=== PATIENT | female | born 2005 | race Caucasian/White ===

== ENCOUNTER 2023-03-08 14:22 | Emergency (ER) | payer OTHER, SELFPAY ==
[2023-03-08 14:30] VITALS: BP 109/63; PULSE 88; RESP 18; TEMP 36.6; O2SAT 100; BMI 20.1
--- NOTE | 2023-03-08 17:46 | ED.GENADULT ---
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 She says she was pinching at her right eye quite a bit trying to find her contact lens and now the right eye somewhat red. Vision is baseline. She wears soft lenses, normally she says she is good about changing them regularly. Related Data Home Medications Medication Instructions Recorded Confirmed Adderall 03/08/23 Allergies Allergy/AdvReac Type Severity Reaction Status Date / Time No Known Drug Allergies Allergy Verified 03/08/23 14:34 Exam Narrative: Exam Narrative: Vital signs reviewed In general, alert, well-appearing teenager. Eyes: She has some conjunctival injection in the lower outer quadrant of her right eye. With just the light I did not see evidence of a lens in either eye. I did add some proparacaine drops as well as fluorescein, I do not see evidence of retained contact lenses. She does have a little bit of uptake in that injected area in her right eye. Skin: Warm dry well perfused, no erythema or warmth. Neurologic: She is alert, conversant, gait stable. Const: Vital Signs, click to edit/add: Vital Signs - 24 hr 03/08/23 14:30 Temperature 98 F Pulse Rate [Pulse Oximeter] 88 Respiratory Rate 18 Blood Pressure [Ri ght Upper Arm] 109/63 Pulse Oximetry 100 Documenting provider has reviewed patient's vital signs: yes Course Course Hospital Course: Discussed that at this time I do not see any evidence of contact lenses. It is possible she removed them and does not remember, or they may have fallen out. In any case, recommended some tobramycin drops to cover for mild abrasion on the right eye. Would recommend leaving contacts out until that inflammation has settled down. Follow-up with blood bank laboratory professional for ongoing concerns. She did tell me that she was not sure she was going to pick up driver the tobramycin drops because [place] sure if her insurance will cover them. Reviewed with her that I would recommend that she start those, but if she does not, make sure to return if her eyes getting worse. Vital Signs Vital signs: Initial Vital Signs Temperature 98 F 03/08/23 14:30 Temperature Source Temporal Artery Scan 03/08/23 14:30 Pulse Rate 88 03/08/23 14:30 Respiratory Rate 18 03/08/23 14:30 Blood Pressure 109/63 03/08/23 14:30 Blood Pressure Mean 78 03/08/23 14:30 Blood Pressure Position Sitting 03/08/23 14:30 Pulse Oximetry 100 03/08/23 14:30 Vital Signs Temperature 98 F 03/08/23 14:30 Pulse Rate 88 03/08/23 14:30 Respiratory Rate 18 03/08/23 14:30 Blood Pressure 109/63 03/08/23 14:30 Pulse Oximetry 100 03/08/23 14:30 Temperature 98 F 03/08/23 14:30 Pulse Rate 88 03/08/23 14:30 Respiratory Rate 18 03/08/23 14:30 Blood Pressure 109/63 03/08/23 14:30 Pulse Oximetry 100 03/08/23 14:30 Discharge Plan Discharge Clinical Impression: Corneal abrasion Patient Disposition: Home, Self-Care Condition: Stable Instructions: Corneal Abrasion (DC) Additional Instructions: Would recommend antibiotic eyedrops as prescribed, if you choose not to do this, make sure you come back if your eyes feeling worse or you develop new symptoms such as light sensitivity or vision difficulties. Otherwise, I would give your eyes a day or 2 for inflammation to improve before you put contact lenses back in. Prescriptions: No Action Adderall Patient Comments: has not been on for 1.5 weeks because pharmacy is out of it Stand Alone Forms: [facility] Info Instructions
== END 2023-03-08 15:17 | disposition home or self-care (01) ==
PROVIDERS: Emergency Provider Emergency Medicine
DX: H18.821 Corneal disorder due to contact lens, right eye (principal)
CPT/HCPCS: 99283